=== PATIENT | female | born 1950 | race Caucasian/White ===

== ENCOUNTER → 2018-01-21 | Day surgery (SDC) | payer MEDICARE, OTHER ==
[~2018-01-21] MED LIST: CELE200C PO; DEXT30CA6 PO; ESTR2TAB PO; IV RINGERS SOLUTION,LACTATED 1,000 ML IV SCH; LEVO100T5 PO; LIDOCAINE 2% PF Vial for OR 5 ML VIAL. ONE; LOSA100T7 PO; MIDAZOLAM HCL PF 2 MG/2 ML VIAL. IV ONE; MIRA50TA PO; ONDANSETRON PF 4 MG/2 ML VIAL. IV PRN; PANT40TA3 PO; POLY17PO5 PO; PROPOFOL 40 ML IV ONE; QUET25TA5 PO; SOLI10TA2 PO; TRAM50TA PO
[2018-01-21 09:24] VITALS: BP 154/73
== END | disposition home or self-care (01) ==
LOC: SURG 07:30
PROVIDERS: ATTEND Surgery
DX: Z12.11 Encounter for screening for malignant neoplasm of colon (principal); K57.30 Diverticulosis of large intestine without perforation or abscess without bleeding; I10 Essential (primary) hypertension; K21.9 Gastro-esophageal reflux disease without esophagitis; E03.9 Hypothyroidism, unspecified; I25.2 Old myocardial infarction; Z80.0 Family history of malignant neoplasm of digestive organs; Z79.899 Other long term (current) drug therapy; Z90.49 Acquired absence of other specified parts of digestive tract; Z98.890 Other specified postprocedural states; Z90.710 Acquired absence of both cervix and uterus; Z96.659 Presence of unspecified artificial knee joint
CPT/HCPCS: G0105; J2704; J7120; 45378; J2001